=== PATIENT | female | born 1945 | race Caucasian/White ===

== ENCOUNTER 2016-11-01 15:07 | Inpatient (IN) | payer OTHER ==
[2016-11-01 15:37] LABS: MANUAL DIFF NEEDED? NO
[2016-11-01 15:41] LABS: BASO% 0.9 % (0.0-0.8); EOS# 0.04 X1000 (0.0-0.7); EOS% 0.4 % (0.0-10.0); HEMATOCRIT 37.7 % (37.0-47.0); HEMOGLOBIN 11.8 g/dL (12.0-16.0); IMM GRAN# 0.05 X1000 (0.0-0.04); IMM GRAN% 0.5 % (0.0-0.5); LYMPH# 2.48 X1000 (1.2-3.4); LYMPH% 24.1 % (20.5-51.1); MCH 30.2 PG (27-31); MCHC 31.3 g/dL (33-37); MCV 96.4 FL (81-99); MONO# 0.71 X1000 (0.11-0.59); MONO% 6.9 % (1.7-9.3); MPV 11.3 FL (7.4-10.4); NEUT% 67.2 % (42.2-75.2); PLT 267 X1000 (130-400); RBC 3.91 XMIL (4.2-5.4)
--- NOTE | 2016-11-01 15:41 | ED EKG INTERP ---
EKG Interpretation - EKG Time of EKG reading by physician:: 15:15 EKG Read and Signed by:: Chin Ko EKG Interpretation (*Must complete 3 of following elements*): Abnormal Rate: 100 Rhythm: accelerated junctional rhythm QRS: RBB, other (left anterior fasic) ST Wave: non-specific ST changes Attestation - Scribe Verification/Attestation Scribe:: Jeremy Stinson Acting as Scribe for:: Chin Ko Scribe documention review:: This chart was documented by a scribe and accurately reflects the service the provider performed and the decisions made by the provider. Physician Attestation - Physician Attestation I, the provider, attest to the following statement:: Chin Ko Physician documentation Attestation:: This documentation recorded by the scribe accurately reflects the service I personally performed and the decisions made by me.
--- NOTE | 2016-11-01 15:48 | EKG Report ---
Test Performed on : 11/01/2016 3:15:38 PM Test Reason : Chest Pain Blood Pressure : / mmHG Vent. Rate : 100 BPM Atrial Rate : 091 BPM P-R Int : 000 ms QRS Dur : 116 ms QT Int : 378 ms P-R-T Axes : 000 -71 041 degrees QTc Int : 487 ms Accelerated Junctional rhythm. Right bundle branch block Left anterior fascicular block Bifascicular block Abnormal ECG When compared with ECG of 04-AUG-2016 11:40, Junctional rhythm. has replaced Sinus rhythm. Vent. rate has increased BY 42 BPM Unconfirmed Result
[2016-11-01 15:52] LABS: CALCIUM 9.5 mg/dL (8.8-10.2); MAGNESIUM 1.8 mg/dL (1.5-2.7); POTASSIUM 5.4 mmol/L (3.5-5.1); TOTAL BILIRUBIN 0.44 mg/dL (0.20-1.00); TOTAL PROTEIN 8.1 g/dL (6.3-8.3)
[2016-11-01 16:32] LABS: INR 1.01; PROTIME 10.3 Seconds (9.2-11.7); PTT 24.1 Seconds (22.0-36.0)
--- NOTE | 2016-11-01 16:32 | PROVIDER DOCUMENTATION ---
HPI-Chest Pain - General Chief Complaint: Palpitations Stated Complaint: HIGH HEART RATE Time Seen by Provider: 11/01/16 16:15 Allergies/Adverse Reactions: Patient Allergies Allergy/AdvReac Type Severity Reaction Status Date / Time No Known Allergies Allergy Verified 11/01/16 16:58 Home Medications: Home Medication List Medication Instructions Recorded Confirmed Last Taken Type Acyclovir 400 mg PO BID 02/06/13 11/01/16 11/01/16 08:00 History Citalopram Hydrobromide 20 mg PO BID 02/06/13 11/01/16 11/01/16 08:00 History [Citalopram HBr] Cyclosporine, Modified [Gengraf] 75 mg PO BID 02/06/13 11/01/16 11/01/16 08:00 History Mycophenolate Mofetil [Cellcept] 750 mg PO BID 02/06/13 11/01/16 11/01/16 08:00 History Prednisone 5 mg PO QAM 02/06/13 11/01/16 11/01/16 08:00 History Edoxaban Tosylate [Savaysa] 30 mg PO DAILY 10/31/15 11/01/16 11/01/16 08:00 History Flecainide Acetate 50 mg PO BID 10/31/15 11/01/16 11/01/16 08:00 History Furosemide [Lasix] 20 mg PO DAILY 10/31/15 11/01/16 10/30/16 08:00 History Amlodipine [Norvasc] 2.5 mg PO DAILY 11/01/16 11/01/16 11/01/16 08:00 History Diltiazem [Cardizem] 30 mg PO BID 11/01/16 11/01/16 11/01/16 08:00 History Mometasone Furoate 110 Mcg INH 2 puff INH PRN PRN 11/01/16 11/01/16 Unknown History [Asmanex 110 Microgm Inhaler] Propafenone [Rythmol] 150 mg PO TID 11/01/16 11/01/16 Unknown History - History of Present Illness-CP Nature of Presenting Problem: Pt comes to the ER for Evaluation after seeing her oncologist. She states her HR is very elevated and it was in the 120's at the doctors office. She has had a renal transplant and her kidney numbers are above her baseline. She states that she has a blood disorder that she sees the oncologist. She states over the weekend that she has had chest heaviness 4/10 it doesn't radiate no nausea and vomiting. Pt also states that she sleeps on 3 pillows but this a chronic complaint. Her medication was just changed by dr gurpreet magallanes from metoprolol to Cardizem. Review of Systems - Adult - REVIEW OF SYSTEMS - ADULT Constitutional: reports: no symptoms reported. denies: chills, fever, fatique, night sweats, weight gain Eyes: reports: no symptoms reported. denies: discharge, dry eyes, blurred vision, double vision, eye pain, redness Ears, Nose, Mouth & Throat: reports: no symptoms reported. denies: ear discharge, hearing loss, epistaxis, nose pain, loose teeth, hoarseness, throat pain, throat swelling Cardiovascular: reports: see HPI, chest pain, irregular heart rate, orthopnea, palpitations. denies: edema, heart murmur, poor circulation, syncope Respiratory: reports: see HPI, shortness of breath. denies: chronic cough, cough, dyspnea on exertion, excessive sputum production, hemoptysis, pleurisy, wheezing Gastrointestinal: reports: no symptoms reported. denies: abdominal pain, constipation, diarrhea, difficulty swallowing, frequent heartburn, poor appetite , rectal bleeding, vomiting Genitourinary: reports: no symptoms reported. denies: dysuria, discharge, frequency, frequent UTI's, hesitency, incontinence, urinary retention, urgency Musculoskeletal: reports: no symptoms reported. denies: bone pain, back pain, frequent leg cramps, joint swelling, muscle aches, neck pain Integumentary: reports: no symptoms reported. denies: hives, itching, nail changes, rash, skin sores/ulcer Neurological: reports: no symptoms reported. denies: ataxia, headache/migraines , loss of balance, paresthesia, slurred speech, syncope, other Psychiatric: reports: no symptoms reported. denies: anxiety, anti-depressant use, alcohol/drug dependence, depression, emotional problems, insomnia, panic attacks, other Endocrine: reports: no symptoms reported. denies: change in skin pigment, excessive sweating, cold intolerance, heat intolerance, increased hunger, increased thirst, polyuria Hematologic/Lymphatic: reports: no symptoms reported. denies: blood clots, easy bruising, low blood count, prolonged bleeding, swollen lymph nodes, transfusions Allergic/Immunologic: reports: no symptoms reported. denies: allergic reactions , allergic rhinitis, asthma, eczema, frequent infections, hay fever, positive PPD, urticaria All Other Systems: Reviewed and Negative Past History - Adult - PAST MEDICAL HISTORY-ADULT Review of Records: reports: Old Records Reviewed, Nursing Assessment Review, Medications Reviewed, Social history reviewed & non-contributory. Major Childhood Illnesses: reports: denies history Cardiovascular: reports: A-Fib, CHF (diastolic), HTN, hyperlipidemia Respiratory: reports: COPD Gastrointestinal: reports: denies history Obstetrical/Gynecological: reports: denies history Genitourinary: reports: kidney disease Musculoskeletal: reports: denies history Neurological: reports: denies history Psychiatric: reports: depression Endocrine/Immune: reports: Diabetes Other Conditions: reports: denies history - PRIOR SURGERIES/PROCEDURES Surgical/Procedure History: reports: other (renal transplant) - IMMUNIZATION STATUS Childhood Immunizations: See Nurse Assessment Flu Vaccine: See Nurse Assessment - FAMILY HISTORY Family History: reviewed, not pertinent - SOCIAL HISTORY Smoking: denies Substance Use: none/never Alcohol Use Frequency: never Living Situation: family Physical Exam-General - PHYSICAL EXAM-ADULT Initial Vital Signs Reviewed: Yes - CONSTITUTIONAL General Appearance: appears well, alert, no apparent distress - EYES Eyes: PERRL/EOMI, pink conjunctivae - HEAD, EARS, NOSE, MOUTH & THROAT HENMT: normocephalic/atraumatic, moist mucous membranes, normal ENT inspection - NECK Neck: non-tender, full range of motion - RESPIRATORY Respiratory: chest non-tender, lungs clear, normal breath sounds, no pleuratic chest pain, no respiratory distress, no accessory muscle use, decreased breath sounds - CARDIOVASCULAR Cardiovascular: normal peripheral pulses, tachycardia - GASTROINTESTINAL (ABDOMEN) Abdominal Exam: normal bowel sounds, non tender, soft - GENITOURINARY Female Genitalia/Pelvic Exam: deferred - MUSCULOSKELETAL Back Exam: normal inspection, no CVA tenderness, no vertebral tenderness Extremity: normal range of motion, non-tender - SKIN Integumentary: normal color, normal turgor, warm/dry - NEUROLOGIC 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, grossly normal - PSYCHIATRIC Psych/Mental Status: normal mood/affect, normal thought content, normal thought process, oriented x 3 Progress - PLAN OF CARE/RESULTS Progress/Plan/Lab Results: Laboratory Tests 11/01/16 11/01/16 11/01/16 15:24 15:24 15:24 WBC 10.31 RBC 3.91 L Hgb 11.8 L Hct 37.7 MCV 96.4 MCH 30.2 MCHC 31.3 L RDW Std Deviation 13.8 Plt Count 267 MPV 11.3 H Immature Gran % (Auto) 0.5 Neut % (Auto) 67.2 Lymph % (Auto) 24.1 Winkler % (Auto) 6.9 Eos % (Auto) 0.4 Baso % (Auto) 0.9 H Immature Gran # (Auto) 0.05 H Neut # (Auto) 6.94 H Lymph # (Auto) 2.48 Winkler # (Auto) 0.71 H Eos # (Auto) 0.04 Baso # (Auto) 0.09 PT INR PTT (Actin FS) D-Dimer 1.26 H Sodium 136 Potassium 5.4 H Chloride 99 Carbon Dioxide 21 L Anion Gap 16 BUN 38 H Creatinine 2.1 H Estimated GFR/1.73 m2 23 BUN/Creatinine Ratio 18 Glucose 225 H Calculated Osmolality 288 Calcium 9.5 Magnesium 1.8 Total Bilirubin 0.44 AST 13 ALT 6 L Alkaline Phosphatase 112 H Creatine Kinase 41 Troponin T Nus-L-Avagcponwwi Pept Total Protein 8.1 Albumin 4.0 Globulin 4.1 Albumin/Globulin Ratio 1.0 11/01/16 11/01/16 11/01/16 15:24 15:24 15:24 WBC RBC Hgb Hct MCV MCH MCHC RDW Std Deviation Plt Count MPV Immature Gran % (Auto) Neut % (Auto) Lymph % (Auto) Winkler % (Auto) Eos % (Auto) Baso % (Auto) Immature Gran # (Auto) Neut # (Auto) Lymph # (Auto) Winkler # (Auto) Eos # (Auto) Baso # (Auto) PT 10.3 INR 1.01 PTT (Actin FS) 24.1 D-Dimer Sodium Potassium Chloride Carbon Dioxide Anion Gap BUN Creatinine Estimated GFR/1.73 m2 BUN/Creatinine Ratio Glucose Calculated Osmolality Calcium Magnesium Total Bilirubin AST ALT Alkaline Phosphatase Creatine Kinase Troponin T < 0.010 Bvu-H-Vuljjrpqhuc Pept 198 Total Protein Albumin Globulin Albumin/Globulin Ratio Orders Category Date Time Status Cardiac Monitoring DIRECTED Care 11/01/16 15:24 Active ED: Orthostatic Vital Signs (E as directed Care 11/01/16 16:35 Active Saline Loc NOW Care 11/01/16 16:35 Active CBC WITH ELECTRONIC DIFF [HEME] Stat Lab 11/01/16 15:24 Completed CK PROFILE [SP CHEM] Stat Lab 11/01/16 15:24 Completed COMPREHENSIVE METABOLIC PANEL [CHEM] Stat Lab 11/01/16 15:24 Completed D-DIMER [CHEM] Stat Lab 11/01/16 15:24 Completed MAGNESIUM [CHEM] Stat Lab 11/01/16 15:24 Completed PRO B-NATRIURETIC PEPTIDE Stat Lab 11/01/16 15:24 Completed PROTIME WITH INR [COAG] Stat Lab 11/01/16 15:24 Completed PTT [COAG] Stat Lab 11/01/16 15:24 Completed TROPONIN T Stat Lab 11/01/16 15:24 Completed 0.9% Sodium Chloride Inj [Ns] 500 ml Med 11/01/16 16:35 Discontinued IV 999 mls/hr EKG [EKG] Stat Ther 11/01/16 15:24 Draft Vital Signs - 24 hr 11/01/16 11/01/16 11/01/16 15:19 16:35 17:11 Temperature 98.0 F Pulse Rate 100 H 109 H Pulse Rate [ 103 H Sitting] Pulse Rate [ 117 H Standing] Pulse Rate [ 88 Supine] Respiratory 18 21 Rate Blood Pressure 158/80 108/59 Blood Pressure 132/95 [Sitting] Blood Pressure 108/59 [Standing] Blood Pressure 154/82 [Supine] O2 Sat by Pulse 100 98 Oximetry - CONSULTS/PCP/HOSPITALIST Notification #1 *Consult/PCP/Hospitalist*: qunasha Time Discussed: 17:36 Consult Disposition: Will see in ED, Admit Departure - Departure Time of Disposition Order: 17:18 DIAGNOSIS: Fluid volume depletion, Orthostasis Chest pain Qualifiers: Chest pain type: unspecified Qualified Code(s): R07.9 - Chest pain, unspecified Disposition: ADMITTED INPATIENT 09 Certified Medical Emergency: Emergent Condition: Good Additional Instructions: ED Follow Up Instructions: You have been treated by a care provider in the Emergency Department. These instructions are being provided to you so you can have an understanding of how to care for yourself upon discharge. Upon discharge from the Emergency Department, you are responsible for making arrangements for follow-up care by a physician of your choice. Take all prescribed medications as directed. Return to the Emergency Department immediately for any new or worsening symptoms. You may call the Physician Referral phone number at [phone] to obtain a list of Physicians who are taking new patients. Referrals: Monica Juan MD [Primary Care Provider] - Attestation - Physician/ HARPER Attestation Patient care was provided by Advanced Practice Provider:: Yes Advanced Practice Provider:: Mayela Alberto Advanced Practice Provider documentation review:: The Mid-level provider documentation, treatment plan and medical decision making was reviewed by the physician who agrees with all treatment and medical decision making by the MLP.
[2016-11-01] MEDS ORDERED: NS 500 ML IV ONE (16:35)
[2016-11-01] MEDS ORDERED: NS 1,000 ML IV ONE (18:58)
[2016-11-01] MEDS ORDERED: TYLENOL PO PRN (18:58)
[2016-11-01] MEDS ORDERED: MOMETASONE INH PRN (18:58)
--- NOTE | 2016-11-01 19:50 | HISTORY AND PHYSICAL ---
PRIMARY CARE PROVIDER: Dr. Monica Juan. PRIMARY AIR HAMMER STRIPPER: Dr. Jaimes. PRIMARY YARN WINDER: Dr. Mccarthy. He was a previous patient of Dr. Morgan Berry. CHIEF COMPLAINT: Chest heaviness, heart racing, lightheadedness. HISTORY OF PRESENT ILLNESS: Ms. Smalls is a 71-year-old female with a past medical history of kidney transplant in 1991, hypertension, diabetes mellitus type 2 (diet controlled), paroxysmal atrial fibrillation, and blood clotting disorder, although the name is unknown. She does have anemia also. Apparently she had been having heart rate in the 50s which was causing her to be sluggish with decreased energy. She went to Dr. Jaimes last week about this and was changed from metoprolol to diltiazem. She states that since she has been taking the diltiazem, which was approximately 4-5 days ago, last Tuesday or , she started having this chest heaviness and feeling like her heart was racing. She would have some dizziness and shortness of breath associated with it. She went to Dr. Mccarthy today who found that her heart rate was 120. Dr. Jaimes was not in office so she came here. Workup revealed EKG showed a heart rate of 100, QTC of 487, and it was an accelerated junctional rhythm with inverted T waves. Upon assessment in her room, it appeared that she had a rhythm of sinus rhythm with a first-degree block with a rate of 89-90. She denied having any excess lower extremity swelling. States that she has actually had about a pound or two weight loss. Her last echocardiogram was back in August of 2016 which showed normal LV function, mild AI, mild TR. Laboratory revealed some mild CURTIS, so will consult Dr. Vaughan given her history of kidney transplant. She has had the same kidney since 1991. Will do IV fluid gentle hydration. Will transfer her to the medical floor with telemetry. 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 She states she also has a blood clotting disorder that she sees Dr. Mccarthy for and anemia (chronic). PAST SURGICAL HISTORY: Renal transplant in 1991, ureteral stent, left salpingectomy, basal cell and squamous cell cancer removal. SOCIAL HISTORY: Denies smoking, alcohol or illicit drug use. Was exposed to secondary smoke. FAMILY HISTORY: Positive for diabetes, coronary artery disease, and hyperlipidemia. REVIEW OF SYSTEMS: A 14-point review of systems was complete and all were negative except for those mentioned in the above HPI. LABORATORY DATA: White blood cells 10,000, hemoglobin 11, hematocrit 37, platelet count 267. INR 1.01. PTT 24.1. D-dimer is 1.26. Sodium 136, potassium 5.4, BUN 38, creatinine 2.1, GFR 23, glucose 225, calcium 9.5, magnesium 1.8, bilirubin 0.44, AST 13, ALT 6. CK 41. Troponin less than 0.01. Pro BNP 198. ELECTROCARDIOGRAM: EKG shows accelerated junctional rate, 100, QTC less than 500. PHYSICAL EXAMINATION: VITAL SIGNS: Temperature 98. Heart rate 90. Respiratory rate 18. Blood pressure 169/98. Saturation 97% on room air. Orthostatics: Heart rate 103 sitting, blood pressure 132/95 sitting; standing heart rate 117, blood pressure 108/59; supine heart rate 88, blood pressure 154/82. Height 5 feet 8 inches, 188 pounds, BMI 28.6. GENERAL: Ms. Smalls is a 71-year-old female. She is in no acute distress. She is able to answer questions appropriately. HEENT: Atraumatic, normocephalic. Pupils equal, round, reactive to light. Extraocular movements intact. Mucous membranes are dry. NECK: No JVD or carotid bruits noted. CARDIOVASCULAR: S1, S2. Regular rate and rhythm. No rubs, gallops or murmurs noted. PULMONARY: Clear to auscultation. Bilateral breath sounds. No accessory muscle use or work of breathing noted. GASTROINTESTINAL: Abdomen soft, nontender, nondistended. Left CVA tenderness. EXTREMITIES: Trace edema of lower extremities, +2 dorsalis and radial pulses. NEUROLOGIC: A and O x4. Moves all extremities equally. ASSESSMENT AND PLAN: 1. History of paroxysmal atrial fibrillation with current tachycardia. EKG showing accelerated junctional at a rate of 100. Questionable diastolic heart dysfunction. Cardiology has been consulted. Apparently she changed from metoprolol to diltiazem. She feels like these symptoms started at that time. She had complaints of bradycardia prior to being taken off metoprolol, so it could possibly be a rebound effect. She is orthostatic with vital signs. 2. Acute kidney injury on chronic kidney disease. She has had a kidney transplant in the past. Will continue her immunosuppression therapy. Consult Dr. Vaughan. Will do gentle IV fluid hydration, normal saline at 50 per hour, renal labs, urine studies. 3. Diabetes mellitus type 2. Will do pattern blood glucoses and insulin. 4. Hypertension. 5. History of what she states is a blood clotting disorder. She has B12 deficiency and anemia that she also sees Dr. Mccarthy for. Apparently she takes edoxaban tosylate (Savaysa) 30 mg p.o. daily. Will continue that. 6. Herpetic keratitis. We are going to hold her acyclovir for now given her CURTIS. 7. Deep venous thrombosis prophylaxis. Again, she will be taking her edoxaban. 8. Gastrointestinal prophylaxis. Proton pump inhibitors. Dictated by JAN Ruffin for Killian Sargent MD
[2016-11-01] MEDS: HUMULIN R SUBQ SCH (21:00)
[2016-11-01] MEDS ORDERED: NEORAL PO SCH (21:00)
[2016-11-01] MEDS: CELEXA PO SCH (21:45)
[2016-11-01] MEDS: CARDIZEM PO SCH (21:45)
[2016-11-01] MEDS: CELLCEPT PO SCH (21:45)
[2016-11-01] MEDS: NEORAL PO SCH (21:45)
[2016-11-01] MEDS: TAMBOCOR PO SCH (21:45)
[2016-11-02 01:02] LABS: UR CREAT RANDOM 59.7 mg/dL (11-20)
[2016-11-02] MEDS: HUMULIN R SUBQ SCH ×4 (06:34→21:09)
[2016-11-02 07:01] LABS: MANUAL DIFF NEEDED? NO
[2016-11-02 07:12] LABS: BASO% 0.9 % (0.0-0.8); EOS# 0.19 X1000 (0.0-0.7); EOS% 2.4 % (0.0-10.0); HEMATOCRIT 33.9 % (37.0-47.0); HEMOGLOBIN 10.6 g/dL (12.0-16.0); IMM GRAN# 0.02 X1000 (0.0-0.04); IMM GRAN% 0.3 % (0.0-0.5); LYMPH# 2.56 X1000 (1.2-3.4); LYMPH% 32.4 % (20.5-51.1); MCH 30.2 PG (27-31); MCHC 31.3 g/dL (33-37); MCV 96.6 FL (81-99); MONO# 1.26 X1000 (0.11-0.59); MONO% 15.9 % (1.7-9.3); MPV 11.3 FL (7.4-10.4); NEUT% 48.1 % (42.2-75.2); PLT 230 X1000 (130-400); RBC 3.51 XMIL (4.2-5.4)
[2016-11-02 07:37] LABS: HEMOGLOBIN A1C 6.6 % (4.8-6.0)
[2016-11-02 07:46] LABS: CALCIUM 9.2 mg/dL (8.8-10.2); MAGNESIUM 1.8 mg/dL (1.5-2.7)
--- NOTE | 2016-11-02 07:48 | Diag Imaging Result Document ---
PROCEDURE NAME: CHEST-2 VIEWS - 11/01/2016 FRONTAL AND LATERAL CHEST, TWO VIEWS: COMPARISON: Compared to 08/04/2016. FINDINGS: The lungs are well expanded. The heart is not enlarged. The vessels are not distended. No pneumonia. No pleural effusions. No free air beneath the diaphragm. Mild scoliosis. Increased markings in the left costophrenic angle are similar to the prior exam and likely represent fibrosis. IMPRESSION: Stable chest.
[2016-11-02] MEDS: TAMBOCOR PO SCH (08:28)
[2016-11-02] MEDS: RYTHMOL PO SCH ×3 (08:33→17:34)
[2016-11-02] MEDS: NEORAL PO SCH ×2 (08:33→20:53)
[2016-11-02] MEDS: PREDNISONE PO SCH (08:33)
[2016-11-02] MEDS: CELLCEPT PO SCH ×2 (08:33→20:53)
[2016-11-02] MEDS: CELEXA PO SCH ×2 (08:33→20:54)
[2016-11-02] MEDS: CARDIZEM PO SCH (08:34)
[2016-11-02] MEDS ORDERED: SAVAYSA PO SCH (09:00)
--- NOTE | 2016-11-02 09:09 | EKG Report ---
Test Performed on : 11/02/2016 06:32:37 AM Test Reason : evaluate rythm Blood Pressure : / mmHG Vent. Rate : 074 BPM Atrial Rate : 074 BPM P-R Int : 194 ms QRS Dur : 104 ms QT Int : 412 ms P-R-T Axes : 074 -55 038 degrees QTc Int : 457 ms Normal sinus rhythm. Left anterior fascicular block ST & T wave abnormality, consider anterior ischemia Abnormal ECG When compared with ECG of 01-NOV-2016 18:24, (Unconfirmed) CT interval has decreased Right bundle branch block is no longer present Inverted T waves have replaced nonspecific T wave abnormality in Anterior leads Confirmed by Kassi SCHWAB, Itz Leon ([id number]) on 11/03/2016 3:22:37 PM
--- NOTE | 2016-11-02 11:21 | CONSULTATION ---
DATE OF CONSULTATION: 11/02/2016 Ms. Devora Smalls is a 71-year-old lady who is followed up by Dr. Jaimes in our office. Has history of COPD, mild paroxysmal atrial fibrillation, minimal coronary artery disease, comes with complaints of having increasing shortness of breath for the last year. Later recently she has was on a combination of flecainide and metoprolol. Medications were changed and she was added with Cardizem and beta-blockers were stopped however with Cardizem she says she has not been feeling well and has noticed increasing heart rate going up to 110-120. Before that, on the beta- blockers and flecainide combination she had episodes of low heart rate going in the 50s. As far as other symptoms are concerned, she also has noticed some chest discomfort. It tends to happen if she takes a deep breath and of late she has had increasing episodes of shortness of breath with minimal exertion. She had chest pains made worse on inspiration described as sharp in character. She also has had palpitations. There is no syncope however with increased heart rate of up to 120 she did not feel well. She is on anticoagulation therapy. Does not complain of any bleeding diathesis. REVIEW OF SYSTEMS: Fourteen point review of systems was done.GI System: There is no history of nausea, vomiting, diarrhea. There is no history of hematemesis or melena. Central Nervous System: No focal weakness to suggest a CVA or TIA. Genitourinary: There is no dysuria or hematuria. Respiratory System: There is no history of cough, expectoration, hemoptysis. There is no history of fevers or chills. PAST MEDICAL HISTORY: 1. Paroxysmal atrial fibrillation. 2. Anticoagulation therapy. 3. Hypertension, hyperlipidemia. 4. Diabetes. 5. MRI 11/03/2015 no acute disease. 6. Left heart catheterization 02/07/2013 left main aneurysmal dilated. Otherwise no significant disease. LAD, circumflex, ramus appeared to be normal. Right coronary artery minimal irregularities. Last stress earlier this year was unremarkable. 7. She has renal insufficiency with atrophic bilateral kidneys. 8. A history of renal failure. 9. Iliac artery aneurysms. HOME MEDICATIONS: Include Savaysa 30, flecainide 100 b.i.d., amlodipine 2.5, Lasix 40, prednisone 5, CellCept, Gengraf, Celexa, acyclovir, diltiazem. PHYSICAL EXAMINATION: Vital Signs: Blood pressure was 115/53. Cardiovascular System: Normal jugular venous pressure. There is no thyromegaly, no carotid bruit. First and 2nd sounds heard. There is no S3 gallop. Respiratory System: Normal air entry. There are no crepitations or rhonchi. Abdomen: Soft, obese, nontender. There was no guarding or rigidity. Bowel sounds were heard. Central nervous system: Alert and oriented. Able to move all 4 extremities. Extremities: Examination of extremities revealed mild pedal edema. There was no calf tenderness. HEENT: Atraumatic, normocephalic. Pupils were equal and reacting to light. LABORATORY EXAMINATION: Sodium 140, potassium 5.0, BUN 136, creatinine 1.8. D-dimer was elevated at 1.26. ProBNP 242. Magnesium 1.8. ASSESSMENT AND PLAN: Ms. Devora Smalls is a 71-year-old lady with paroxysmal atrial fibrillation. She has had problems with the medications. As advised we will continue with Rythmol 150 mg t.i.d. Her flecainide has been discontinued and she had problems with beta blockers which have been discontinued. The beta-blockers caused significant bradyarrhythmia. As far as Cardizem is concerned, she did not tolerate it and had increasing heart rate and we will stop that. We will monitor and see how she does on propafenone 150 t.i.d. alone. As far as anticoagulation is concerned, we will stop the Savaysa and put her on Xarelto 15 and as an outpatient we can also evaluate for cost. Hypertension. Blood pressure is under control. I have not made any changes to medications. She has had increasing shortness of breath, has mild COPD. However symptoms of shortness of breath have worsened with some pleuritic component of chest pain. We will get a V/Q scan to make sure there is no pulmonary embolism. However the likelihood is less given the fact that she was on Savaysa. Renal insufficiency is chronic. She has bilateral atrophic kidneys. She has been given a hydrated. We will discontinue the IV fluids. Thank you for the consult. We will follow hospital course.
--- NOTE | 2016-11-02 15:26 | PROGRESS NOTE ---
DATE: 11/02/2016 SUBJECTIVE: Today Ms. Smalls refers to be doing fine. She does not have any more dizziness. However, she still has this residual shortness of breath. Briefly, Ms. Smalls is a 71-year-old renal transplant patient for the past 20 something years. Has atrial fibrillation, normally follows up with Dr. Jaimes. According to her, her beta marek was switched to Cardizem because she was getting bradycardic and subsequently to that, she has been having some residual shortness of breath. She went to Dr. Mccarthy's office because of some B12 deficiency issues and over there she was found to have a pulse of over 120, so they sent her here yesterday for further evaluation. OBJECTIVE: Vital signs: Blood pressure is 119/40, pulse of 77, respiration is 19, temperature is 98.1 degrees. General: Ms. Smalls is a 71-year-old female. She is in bed. Does not seem to be in any distress. HEENT: Mucosa is pink and moist. Anicteric. Acyanotic. Neck: Supple. Chest: Clear. Cardiovascular: Regular rate and rhythm. Abdomen: Soft. Extremities: No pedal edema. Skin: The patient has some scaly lesions on her entire skin. LABORATORY DATA: CBC is reviewed and unremarkable except for a hemoglobin of 10.6. Chemistry is reviewed. Creatinine is 1.8 from 2.1 yesterday. Troponins have been completely normal. ProBNP is normal. ASSESSMENT: 1. Syncope. Likely due to orthostatic hypotension. The patient is getting gentle hydration. This seems to be improving. 2. Acute on chronic kidney disease. The patient seems to have a baseline creatinine of about 1.4 to 1.7. Came in with a creatinine of 2.1. It is now down to 1.7. I think that is her baseline. 3. History of renal transplant. We will continue with her immunosuppressive therapy. 4. Diabetes mellitus. 5. Tachyarrhythmia on presentation. Initially we thought this was probably a junctional rhythm. Now it has been in and out of atrial fibrillation . Some changes have been done to the patient's medications for the atrial fibrillation by the rn community and she has been started on Xarelto as well. PLAN: So in general, I think patient is doing fine. She does not have any more dizziness. A V/Q scan has been ordered by the cardiology team which I think is probably going to come back normal. We will continue with the gentle hydration and plan patient's discharge probably for tomorrow. LOREN
--- NOTE | 2016-11-02 15:39 | Diag Imaging Result Document ---
PROCEDURE NAME: LUNG SCAN / VQ - 11/02/2016 NUCLEAR MEDICINE V/Q SCAN: COMPARISON: 11/01/2015. FINDINGS: 34.5 millicuries of aerosolized technetium-99m DTPA was administered for the ventilation portion of the scan. Then 6.3 millicuries of technetium-99m MAA was administered intravenously for the perfusion portion of the scan. No perfusion defects are identified on any of the perfusion images. The ventilation portion the scan is grossly unremarkable as well. IMPRESSION: Normal V/Q scan.
[2016-11-02] MEDS ORDERED: XARELTO PO SCH (17:00)
--- NOTE | 2016-11-02 17:45 | CONSULTATION ---
DATE OF CONSULTATION: 11/02/2016 REASON FOR ADMISSION: Chest heaviness with her heart racing, heart rate in the 120s documented at Dr. Mccarthy's office. She complains of lightheadedness. DATE OF CONSULTATION: 11/02/2016. REASON FOR CONSULTATION: Assistance with CKD and post renal transplant greater than 25 years. CONSULTING PHYSICIAN: Killian Sargent M.D. TIME SEEN: 08:50. SUBJECTIVE: Ms. Smalls is a 71-year-old white female who is known to our inpatient services who has not been followed by us at our office. She is a 25 year post renal transplant. Patient states that she is followed by Dr. Jaimes and Dr. Mccarthy. She had gone yesterday to an appointment with Dr. Mccarthy and was found to have a heart rate in the 120s. She was sent over to Dr. Jaimes's office who was not available. His office staff sent her to [facility]'s Emergency Department for evaluation and workup. Her heart EKG indicated a heart rate of 100. She was in sinus rhythm with a first-degree block. She denied having any increased lower extremity swelling though she actually stated that she has had a 2 pound weight loss secondary to having some nausea and vomiting x1 several days ago with chronic diarrhea. Her last echocardiogram in August 2016 showed a normal LV function. Her labs revealed acute kidney injury, known CKD stage 3. Her baseline creatinine last seen was 1.5. Her creatinine on admission was 2. Subsequently patient was admitted on gentle IV fluid hydration. Evaluation by Cardiology and monitoring per telemetry. She denies any chest pain at this time. No increased work of breathing. No increased lower extremity swelling. She has had no fever or chills. She has not had any nausea or vomiting for 3 days. She continues with diarrhea stools. PAST MEDICAL HISTORY: Hypertension, chronic kidney disease stage 3, previous renal transplant in 1991. She has basal cell carcinoma, squamous cell carcinoma and bilateral iliac aneurysm that is stable. she also has diabetes mellitus type 2, herpetic keratitis, and paroxysmal atrial fibrillation history. She is also following with Dr. Mccarthy for a previous blood clot and anemia which is chronic. PAST SURGICAL HISTORY: Renal transplant 1991, ureteral stents, left salpingectomy, basal cell and squamous cell cancer removal. SOCIAL HISTORY: She denies any tobacco, alcohol or illicit drug use. She is exposed to second hand smoke. FAMILY HISTORY: Positive for diabetes, coronary artery disease, and hyperlipidemia. No renal disease. ALLERGIES: Listed as no known drug allergies. HOME MEDICATIONS: CellCept, acyclovir, prednisone, citalopram HBR, Gengraf, Lasix, Savaysa, flecainide acetate, Cardizem, Asmanex, Rythmol and Norvasc. REVIEW OF SYSTEMS: Review of systems x 10 with pertinent positives listed above in the HPI. MOST RECENT VITAL SIGNS: Temperature is 98.1 degrees, blood pressure 115/53, heart rate 68, respirations 18. She is on 2 L nasal cannula. Last recorded saturation is 100% . She has had 300 in. She had 550+ out x3 stools. LABS: Sodium 140, potassium 5, chloride 104, CO2 24, BUN 36, creatinine 1.8, glucose 72, anion gap 12, calcium 9.2, magnesium 1.8, albumin 4. White count 7.9, hemoglobin 10.6 , hematocrit 33.9, with a platelet count of 230,000. Her TSH is 0.50, pro time 10.3, INR 1.01, PTT 24.1, with a D- dimer 1.26. Patient did have a V/Q scan which was negative. PHYSICAL EXAMINATION: General: This is a 71-year-old white female. She is currently resting in bed. She has just returned from having a stool in the bathroom. She is slightly short of breath secondary to exertion. Otherwise no further complaints. HEENT: Normocephalic , atraumatic. Conjunctivae pink. She has ARI. Mucous membranes moist. Neck: Supple. Trachea midline. No JVD. Cardiovascular: Regular rate and rhythm. She is without murmur or gallop. Sinus rhythm on the monitor. Pulmonary: She is clear to auscultation bilaterally. Equal excursion on room air. Abdomen: Round, soft, nontender, positive bowel sounds. Palpable kidney to the right lower quadrant. Genitourinary: The patient has just voided. She is nontender. Not inspected. Extremities: She has trace pretibial edema. No clubbing or cyanosis. Integumentary: No rashes or lesions evident. Neurological: She is alert and oriented x4. ASSESSMENT AND PLAN: 1. Acute kidney injury on chronic kidney disease secondary to renal transplant. Patient has been continued on her immunosuppressant therapy. She continues on gentle IV fluid hydration. Her creatinine has already come down from 2 to 1.8. Her baseline remains at 1.5. We will continue to monitor. 2. Paroxysmal atrial fibrillation with tachycardia. This is being evaluated by Cardiology. She states that she has recently had medications changed. Dr. Jaimes is following. 3. Electrolytes. These remain stable. 4. Acid-base balance. This remains stable. 5. Anemia. This remains stable. I would like to thank you for allowing us to follow with this patient. Data reviewed, discussed with Madie Katz on 11/02/16. I agree with the above assessment and plan of care. rg Dictated by JAN Son for Sandeep Vaughan MD [facility]
[2016-11-03] MEDS: HUMULIN R SUBQ SCH ×2 (06:35→11:40)
[2016-11-03 07:10] LABS: MANUAL DIFF NEEDED? NO
[2016-11-03 07:14] LABS: BASO% 0.7 % (0.0-0.8); EOS# 0.26 X1000 (0.0-0.7); EOS% 4.3 % (0.0-10.0); HEMOGLOBIN 10.3 g/dL (12.0-16.0); IMM GRAN# 0.02 X1000 (0.0-0.04); IMM GRAN% 0.3 % (0.0-0.5); LYMPH# 2.15 X1000 (1.2-3.4); LYMPH% 35.4 % (20.5-51.1); MCH 29.5 PG (27-31); MCHC 30.3 g/dL (33-37); MCV 97.4 FL (81-99); MONO# 0.86 X1000 (0.11-0.59); MONO% 14.2 % (1.7-9.3); MPV 11.2 FL (7.4-10.4); NEUT% 45.1 % (42.2-75.2); PLT 213 X1000 (130-400); RBC 3.49 XMIL (4.2-5.4)
--- NOTE | 2016-11-03 07:19 | EKG Report ---
Test Performed on : 11/03/2016 06:51:02 AM Test Reason : afib Blood Pressure : / mmHG Vent. Rate : 075 BPM Atrial Rate : 075 BPM P-R Int : 240 ms QRS Dur : 124 ms QT Int : 422 ms P-R-T Axes : 093 -52 058 degrees QTc Int : 471 ms Sinus rhythm. with 1st degree AV block. Right bundle branch block Left anterior fascicular block Bifascicular block Abnormal ECG When compared with ECG of 02-NOV-2016 06:32, (Unconfirmed) ND interval has increased Right bundle branch block is now present T wave inversion no longer evident in Anterior leads Confirmed by Kassi SCHWAB, Itz Leon ([id number]) on 11/03/2016 3:23:53 PM
[2016-11-03 07:35] LABS: POTASSIUM 4.9 mmol/L (3.5-5.1)
[2016-11-03] MEDS: CELLCEPT PO SCH (08:12)
[2016-11-03] MEDS: RYTHMOL PO SCH ×2 (08:13→14:18)
[2016-11-03] MEDS: PREDNISONE PO SCH (08:13)
[2016-11-03] MEDS: NEORAL PO SCH (08:13)
[2016-11-03] MEDS: CELEXA PO SCH (08:13)
--- NOTE | 2016-11-03 08:54 | PROGRESS NOTE ---
DATE: 11/03/2016 SUBJECTIVE: Patient currently resting in bed. She denies any chest pain this morning. OBJECTIVE: Vital signs: Temperature 97.7, pulse 74, respiratory rate 18, blood pressure 109/50. Intake 240 mL. Output has not been measured. She has had multiple voids. General: Elderly female resting in bed. She is awake and alert, in no acute distress. HEENT: Normocephalic, atraumatic. Arcus senilis noted. Oral mucosa moist. Neck: Supple, no JVD. Cardiovascular: No murmur or gallop appreciated. Her rate is controlled on telemetry. Pulmonary: She has equal excursions. She is clear bilaterally. She has no increased work of breathing. Abdomen: Soft, positive bowel sounds. : She continues to void. Extremities: There is trace pretibial edema. This is soft, not pitting. No clubbing or cyanosis. Integumentary: Skin is warm and dry. There is no rash or lesion appreciated. LABORATORY DATA: WBC is 6.0, hemoglobin 10.3. Sodium 136, potassium 4.9, CO2 of 23, BUN 33, creatinine 1.7. Calcium 9.0. IMAGING: V/Q scan negative. ASSESSMENT AND PLAN: 1. Acute on chronic kidney disease secondary to renal transplant. Creatinine stable overnight. Again, her baseline is around 1.5. Will make no changes, continue to monitor. 2. Paroxysmal atrial fibrillation with tachycardia followed by Cardiology. Her rate is controlled today. 3. Electrolytes, acid-base balance, anemia. These are stable. No adjustments. 4. Hypertension, controlled. Data reviewed, discussed with Rony Jauregui on 11/03/16. I agree with the above assessment and plan of care. rg Dictated by JAN Toth for Sandeep Vaughan MD [facility]
[2016-11-03 12:05] VITALS: BP 141/71
--- NOTE | 2016-11-03 12:49 | PROGRESS NOTE ---
DATE: 11/03/2016 SUBJECTIVE: Today, Ms. Smalls refers to doing fine. However, according to her, she gets short of breath very often even, even with minimal exertion. I did ask the nurses to check her saturation on walking and it was pretty normal, in the 99 percents. However, she did manifest clinical difficulty with catching her breath. OBJECTIVE: Vital signs: Blood pressure is 141/71, pulse of 75, respirations 18, temperature 98.1 degrees. General: Ms. Smalls is a 71-year-old female. She is in bed. Does not seems to be in any distress. HEENT: Mucosa is pink and moist. Anicteric. Acyanotic. Neck: Supple. Chest: Good air entry bilaterally. There are a few bibasilar fine crackles. No wheezes. Cardiovascular: Regular rate and rhythm. No murmurs, no rubs, no gallops. Abdomen: Soft. Extremities: No pedal edema. Central Nervous System: Patient is alert and oriented x4. There is no focal neurological deficit. LABORATORY DATA: WBC is 6.07, hemoglobin is 10.3, platelet count of 213,000. Chemistry is reviewed. Creatinine is 1.7. ASSESSMENT: 1. Syncope at home. Could be multifactorial. When patient came in, she had positive orthostatics. She is getting gentle hydration. That seems to have improved. 2. Acute on chronic kidney disease. Creatinine is 1.8. Patient presented with 2.1 and is gradually going down. 3. History of renal transplant. Patient is currently on immunosuppressive therapy. 4. Diabetes mellitus, controlled. 5. Paroxysmal atrial fibrillation, currently rate controlled. 6. Sensation of air hunger. Patient had a V/Q scan which was completely normal. EKGs have also been okay. Her saturation is normal. However, she does seem to have some difficulty breathing occasionally. Upon review, patient previously reported she did seem to have restrictive lung disease consistent with the PFTs that she did before, where her DLCO was moderately reduced and her FRC was also slightly reduced. I think this is genuine underlying interstitial lung disease which could have been due to medications. However, it could also be due to low output from tachyarrhythmia when patient exerts herself. Will continue to monitor her heart. I will do a CT scan without contrast of the lungs to have a better picture, and make sure there is no underlying acute disease that needs to be addressed. I will also do her iron levels, her vitamin D levels, which could potentially make her feel excessively fatigued and have that type of sensation.
--- NOTE | 2016-11-03 13:04 | Diag Imaging Result Document ---
PROCEDURE NAME: CT THORAX W/O CONTRAST - 11/03/2016 CT CHEST WITHOUT CONTRAST: TECHNIQUE: Dose reduction protocol. COMPARISON: Compared to 11/01/2015. FINDINGS: No pleural effusions. Prominent atherosclerosis. Heart is mildly enlarged. There are small mediastinal lymph nodes. There are several calcified right hilar lymph nodes. There is likely a combination of atelectasis and fibrosis in the lung bases. The findings are actually less pronounced than on the prior study. No consolidation. No bronchiectasis. No change in appearance of the thyroid. Patient has mild scoliosis. Limited images through the upper abdomen reveal atrophic kidneys. IMPRESSION: Persistent atelectasis and fibrosis in the lower lungs although these are slightly less pronounced than the prior study. No other interval change.
[2016-11-03 14:21] LABS: IRON SATURATION 37 %; TIBC 290 ug/dL; TOTAL IRON 106 ug/dL (49-151); UNBOUND IRON 184 ug/dL (112-346)
[2016-11-03 14:45] LABS: FERRITIN 92 ng/mL (13-150)
--- NOTE | 2016-11-03 21:53 | DISCHARGE SUMMARY ---
ADMISSION DATE: 11/01/2016 DISCHARGE DATE: 11/03/2016 CONSULTATIONS: Teodoro Moreau MD, Cardiology. PERTINENT PROCEDURES: 1. V/Q scan was normal. 2. Chest CT showed persistent atelectasis and fibrosis in the lower lungs although these are slightly less pronounced than prior study. No interval change. DISCHARGE DIAGNOSES: 1. Syncope at home. Multifactorial. The patient came in with positive orthostatics. Gently hydrated. The patient has improved. 2. Acute on chronic kidney disease. Creatinine baseline is 1.5. Holding her Lasix as well as acyclovir given her kidney status. Encourage p.o. hydration with water at home and follow up with her primary care physician in regards to when to start back her Lasix, Norvasc as well as acyclovir. 3. Renal transplant history, currently on immunosuppressive therapy. 4. Diabetes mellitus. Controlled. 5. Paroxysmal atrial fibrillation, rate controlled. Patient was continued on her Rythmol t.i.d., her flecainide as well as her beta blockers have been discontinued. She had significant bradyarrhythmias and as far as Cardizem, patient did not tolerate it and had increasing heart rate, so that was also stopped as well as her anticoagulation was changed from Savaysa to Xarelto 50 mg with supper. 6. Sensation of air hunger. Patient had a ventilation/perfusion scan that was completely normal. Electrocardiograms have also been okay. Saturations were normal; however, patient seen to have difficulty breathing occasionally, especially with exertion. She did report that she has seen a medical microbiologist in [place] before, Suraj Guzman. She did report that she had a restrictive lung disease consistent with pulmonary function tests that she had done before where DLCO was moderately reduced and her FRC was slightly reduced. We did obtain a computed tomography of her chest without contrast. It did show persistent atelectasis and fibrosis in the lower lungs. We are going to see if the patient does qualify for home O2. If she does not, she would like to be discharged home either way, so she could follow up with her medical microbiologist in [place], Suraj Guzman. HOSPITAL COURSE: Briefly, Ms. Smalls is a 71-year-old female, with past medical history of kidney transplant in 1991, hypertension, diabetes mellitus, type 2, diet controlled, paroxysmal atrial fibrillation, and a blood clotting disorder that she is on Savaysa or and also anemia. The patient has been having heart rate in the 50s which was causing her to be sluggish with decreased energy. She went to see her automobile bumper straightener, Dr. Jaimes last week. She was changed from metoprolol to diltiazem. Since then she has been taking the diltiazem when approximately 4-5 days ago she started having chest heaviness and feeling like her heart was racing. She also had some dizziness and shortness of breath associated with it. She went to see Dr. Mccarthy on the day of her admission and was found to have a heart rate in the 120s. The patient was sent to the ED. Workup revealed an EKG with a heart rate of 100, QTc of 487, it was accelerated junctional with converted T waves. There was not any excessive lower extremity swelling. She actually stated that she had about a pound or 2 weight loss. Her last echo back in August 2016 revealed a normal LV function, mild AI and mild TR. Laboratory data revealed mild acute kidney injury. So Cardiology and Nephrology were consulted and patient was placed on gentle IV fluid hydration. She was transferred to the medical floor. Any nephrotoxic drugs were held like her acyclovir as well as her Lasix were held due to her orthostatics as well as her calcium channel marek. Per Dr. Moreau's report, she was continued on her Rythmol. Again, her flecainide had been discontinued. She has had problems with beta blockers, which have also been discontinued. She did have a significant bradyarrhythmia with her beta blockers, and as the Cardizem was concerned, she did not tolerate it, had increasing heart rates so that was also discontinued. She was just continued on the one agent, the Rythmol 150 t.i.d. alone and her Savaysa was changed to Xarelto 15 mg with supper. The patient still had reports of air hunger. V/Q scan that was done on the lungs was completely normal. Her EKG did not show anything. CT of the chest showed persistent atelectasis and fibrosis in the lower lungs. The patient does follow a medical microbiologist in [place]. She does want to return to see him. She did not want to see any medical microbiologist while here in the hospital or as outpatient. So we talked about seeing if she would qualify for home O2. She was open to this. We have put in a consult to evaluate for home O2, especially with exertion, and if patient did not qualify for home O2, she was still wanting to be discharged home so she could follow up with her regular medical microbiologist, Dr. Suraj Guzman. Dr. Moreau has already seen the patient today. He feels that she is appropriate for discharge home. She is being discharged home. Again, we are awaiting the test results of her home O2 evaluation. DISCHARGE EXAMINATION: Vital signs: At time of discharge, temperature is 98.1 degrees, heart rate 75, respirations 18, blood pressure 141/71, O2 is 100% on 2 L nasal cannula. DISCHARGE MEDICATIONS: 1. CellCept 750 p.o. b.i.d. 2. Citalopram 20 mg p.o. b.i.d. 3. Gengraf 75 mg p.o. b.i.d. 4. Prednisone 5 mg p.o. q.a.m. 5. Mometasone furoate 2 puffs inhaled p.r.n. 6. Rythmol 150 mg p.o. t.i.d. 7. Xarelto 15 mg p.o. with supper. FOLLOWUP: Patient is being discharged home. She is currently being evaluated to see if she qualifies for home O2. She will need to follow up with Dr. Akbar Jaimes in 2 weeks at the [facility] to re-evaluate medications, including her Xarelto. She will need to follow up with her primary care physician, Dr. Kristen Juan in 7-10 days as well as follow up with Dr. Suraj Guzman as soon as possible as well as her office helper that she sees. The patient has been advised that her Lasix, Norvasc and acyclovir have been held for the meantime until she goes to see her primary care physician given her acute kidney injury. The patient has also been advised to continue with p.o. hydration. Patient can return to the emergency department for any worsening of symptoms. DISCHARGE TIME: Greater than 30 minutes. Dictated by JAN Bustos for Killian Sargent MD
== END 2016-11-03 18:12 | disposition home or self-care (01) | DRG 309 ==
LOC: ED 15:07 → EDIPHOLD 19:06 → 3N 11-02 00:13
PROVIDERS: ATTEND Internal Medicine
DX: I49.8 Other specified cardiac arrhythmias (principal); N17.9 Acute kidney failure, unspecified; E11.22 Type 2 diabetes mellitus with diabetic chronic kidney disease; B00.52 Herpesviral keratitis; D64.9 Anemia, unspecified; Z94.0 Kidney transplant status; I95.1 Orthostatic hypotension; I48.0 Paroxysmal atrial fibrillation; I12.9 Hypertensive chronic kidney disease with stage 1 through stage 4 chronic kidney disease, or unspecified chronic kidney disease; N18.3 Chronic kidney disease, stage 3 (moderate); E53.8 Deficiency of other specified B group vitamins; E78.5 Hyperlipidemia, unspecified; F45.8 Other somatoform disorders; Z79.899 Other long term (current) drug therapy; Z79.01 Long term (current) use of anticoagulants; Z86.718 Personal history of other venous thrombosis and embolism; Z79.52 Long term (current) use of systemic steroids; Z84.0 Family history of diseases of the skin and subcutaneous tissue; Z83.3 Family history of diabetes mellitus; Z82.49 Family history of ischemic heart disease and other diseases of the circulatory system
CPT/HCPCS: 36415; 71020; 71250; 78582; 80048; 80053; 82306; 82550; 82570; 82607; 82728; 82746; 82948; 83036; 83540; 83550; 83735; 83880; 84443; 84484; 84540; 85025; 85379; 85610; 85730; 93005; 93010; 99285; A9539; A9540; J7030; J7040; J7502; J7512; J7515; J7517